=== PATIENT | female | born 2000 | race Two or more races ===

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

== ENCOUNTER 2022-03-24 12:10 | Emergency (ER) | payer OTHER ==
[~2022-03-24] VITALS: Ht 149.9 cm; Wt 74.8 kg
[~2022-03-24 12:10] MED LIST changes: +IPRAT-ALBUT 0.5-3 ML IH; +KETO10TA2 PO; +PROMETH-CODEIN 65 ML PO; +SKELAXIN800 MG PO
[2022-03-24] MEDS ORDERED: AMOX-CLAV 875-1 EACH PO (21:24)
[2022-03-24] MEDS ORDERED: ZOFRAN8 MG PO (21:24)
[2022-03-24] MEDS ORDERED: PEPCID AC20 MG PO (21:24)
== END 2022-03-24 21:41 | disposition home or self-care (01) ==
LOC: ER 12:10
DX: J03.90 Acute tonsillitis, unspecified (principal); Z20.822 Contact with and (suspected) exposure to COVID-19

== ENCOUNTER 2024-05-12 18:36 | Emergency (ER) | payer OTHER ==
[~2024-05-12] VITALS: Ht 149.9 cm; Wt 80.7 kg
[~2024-05-12 18:36] MED LIST changes: +AMOX-CLAV 875-1 EACH PO; +PEPCID AC20 MG PO; +ZOFRAN8 MG PO
[2024-05-12] MEDS ORDERED: KETOROLAC TROMETHAMINE 60 MG VIAL IM STA (19:07)
[2024-05-12] MEDS ORDERED: ORPHENADRINE CITRATE 30 MG/ML AMPUL IM STA (19:07)
[2024-05-12] MEDS ORDERED: EFFEXOR XR150 MG PO (21:33)
[2024-05-12] MEDS ORDERED: EFFEXOR XR75 MG PO (21:33)
== END 2024-05-12 20:01 | disposition home or self-care (01) ==
LOC: ER 18:39
DX: M25.512 Pain in left shoulder (principal)
CPT/HCPCS: 96372; 99282; J1885; J2360

== ENCOUNTER 2024-05-12 20:41 | Emergency (ER) | payer OTHER ==
[~2024-05-12] VITALS: Ht 149.9 cm; Wt 80.7 kg
[2024-05-12] MEDS ORDERED: EFFEXOR XR75 MG PO (21:33)
[2024-05-12] MEDS ORDERED: EFFEXOR XR150 MG PO (21:33)
[2024-05-12] MEDS ORDERED: ACETAMINOPHEN WITH CODEINE 1 UDTAB TABLET PO ONE (23:45)
[2024-05-13] MEDS ORDERED: KETOROLAC TROMETHAMINE 30 MG VIAL IV ONE (03:00)
[2024-05-13] MEDS ORDERED: TRIAMCINOLONE ACETONIDE 40 MG/ML VIAL IM ONE (03:00)
== END 2024-05-13 03:15 | disposition home or self-care (01) ==
LOC: ER 20:44
DX: R10.9 Unspecified abdominal pain (principal); M94.0 Chondrocostal junction syndrome [Tietze]